=== PATIENT | female | born 1970 | race African-American/Black ===

== ENCOUNTER 2019-12-25 11:34 | Emergency (ER) | payer OTHER ==
[~2019-12-25] VITALS: Ht 162.6 cm; Wt 77.1 kg
[2019-12-25] MEDS ORDERED: PREDNISONE 20 MG TAB PO ONE (12:00)
--- NOTE | 2019-12-25 12:02 | Emergency Department Note ---
History of Present Illnes History of Present Illness Chief Complaint: General Medicine Complaints History of Present Illness This is a 49 year old female PATIENT IN FROM HOME WITH COMPLAINTS OF BURNING AND PAIN TO HANDS AND FACE; ALSO WITH COMPLAINTS OF MID BACK PAIN X 1 WEEK. PATIENT STATES SHE HAS AN INFECTION IN HER MOUTH THAT SHE HAS AN APPOINTMENT WITH HER DENTIST ON 01/08/2020. Historian: Patient Arrival Mode: Car Rn Testing Required: No Onset (how long ago): week(s) (1) Location: BILATERAL HANDS, PERIORAL Quality: BURNING Radiation: Reports non-radiation Severity: moderate Onset quality: gradual Timing of current episode: constant Chronicity: new Context: Denies recent illness Relieving factors: none Exacerbating factors: none Associated symptoms: Reports denies other symptoms Past Medical/Family History Physician Review I have reviewed the patient's past medical and family history. Any updates have been documented here. Past Medical History Recent Fever: No Clinical Suspicion of Infectio: Yes New/Unexplained Change in Ment: No Past Medical History: Hypertension Past Surgical History: Hysterectomy Social History Smoking Cessation: Former smoker Counseling Performed: No Alcohol Use: Social Any Illegal Drug Use: No TB Exposure/Symptoms: No Physically hurt or threatened: No Family History Family history of heart diseas: No Other Any Pre-Existing Lines (PICC,: No Review of Systems Review of Systems Constitutional: Reports no symptoms EENTM: Reports as per HPI Cardiovascular: Reports no symptoms Respiratory: Reports no symptoms Gastrointestinal: Reports no symptoms Genitourinary: Reports no symptoms Musculoskeletal: Reports no symptoms Integumentary: Reports as per HPI Neurological: Reports no symptoms Psychological: Reports no symptoms Endocrine: Reports no symptoms Hematological/Lymphatic: Reports no symptoms Physical Exam Related Data Allergies: Coded Allergies: No Known Allergies (Unverified , 12/25/19) Triage Vital Signs Vital Signs Date Time Temp Pulse Resp B/P (MAP) Pulse Ox O2 Delivery O2 Flow Rate FiO2 12/25/19 11:40 99.1 87 18 151/99 98 Room Air Vital signs reviewed: Yes Physical Exam CONSTITUTIONAL Constitutional: Present well-developed, Present well-nourished HENT HENT: Present normocephalic, Present atraumatic, Present oropharynx clear/moist, Present nose normal HENT L/R: Present left ext ear normal, Present right ext ear normal EYES Eyes: Reports PERRL, Reports conjunctivae normal NECK Neck: Present ROM normal PULMONARY Pulmonary: Present effort normal, Present breath sounds normal CARDIOVASCULAR Cardiovascular: Present regular rhythm, Present heart sounds normal, Present capillary refill normal, Present normal rate GASTROINTESTINAL Abdominal: Present soft, Present nontender, Present bowel sounds normal GENITOURINARY Genitourinary: Present exam deferred SKIN Skin: Present warm, Present dry; Absent rash MUSCULOSKELETAL Musculoskeletal: Present ROM normal NEUROLOGICAL Neurological: Present alert, Present oriented x 3, Present no gross motor or sensory deficits PSYCHOLOGICAL Psychological: Present mood/affect normal, Present judgement normal Assessment & Plan Medical Decision Making MDM C/O BURNING SENSATION, VERY MINIMAL RASH NOTED Reassessment Reassessment PREDNISONE 60 IN ER, MEDROL DOSE JASVIR AND BENADRYL/PEPCID DIRECTED, HYDROCORTISONE CREAM, F/U PCP Assessment & Plan Final Impression: (1) Dermatitis Depart Disposition: HOME, SELF-CARE Last Vital Signs Date Time Temp Pulse Resp B/P (MAP) Pulse Ox O2 Delivery O2 Flow Rate FiO2 12/25/19 11:40 99.1 87 18 151/99 98 Room Air Medications in the ED Prednisone 60 mg ONCE ONCE PO ; Start 12/25/19 at 12:00; Stop 12/25/19 at 12:01; Status UNV CARROLL GUTIERREZ MD Dec 25, 2019 12:02
== END 2019-12-25 12:00 | disposition home or self-care (01) ==
LOC: ER 12:00
DX: L30.9 Dermatitis, unspecified (principal); M54.9 Dorsalgia, unspecified; I10 Essential (primary) hypertension
CPT/HCPCS: 99283; J7512